=== PATIENT | male | born 1990 ===

== ENCOUNTER 2017-12-23 07:17 | Emergency (ER) | payer OTHER ==
--- NOTE | 2017-12-23 07:22 | UC ---
Abdominal Pain Male HPI - HPI Summary HPI Summary: Patient is 27 year old gentleman who presents today with urethral discharge for over 2 weeks. He was diagnosed with urethritis and had been to [facility] urgent care twice where initially he was tested for chlamydia and gonorrhea which came back negative but he was treated with ceftriaxone and azithromycin. Since his symptoms did not get better he was seen again there on 12/18/17 and was tested for Trichomonas and started on Flagyl and Avelox, he has 2 more pills left at this time. He reports having oral sex with a partner who is completely asymptomatic and he has discussed this with her and she is still reachable. He denies any dysuria or frequency but feels that his discharge has increased now, initially it was clear but now it is greenish yellow and dark . Denies any testicular pain or swelling. He has no frequency or urgency or dysuria. Denies any fever, chills, cough chest pain or shortness of breath . No diaphoresis. Denies any abdominal pain , nausea or vomiting , diarrhea or constipation. - History of Current Complaint Stated Complaint: ABDOMINAL COMPLAINT Time Seen by Provider: 12/23/17 07:20 Hx Obtained From: Patient - Allergies/Home Medications Allergies/Adverse Reactions: Allergies Allergy/AdvReac Type Severity Reaction Status Date / Time No Known Allergies Allergy Verified 12/23/17 07:35 Home Medications: Home Medications Moxifloxacin HCl 400 mg PO DAILY WITH MEAL 12/23/17 [History Confirmed 12/23/17] PMH/Surg Hx/FS Hx/Imm Hx - Additional Past Medical History Additional PMH: No significant past medical history Previously Healthy: Yes Other Endocrine History: negative Other Cardiovascular History: negative Other Respiratory History: negative Other GI/ History: negative Other Neurological History: negative Other Psychological History: negative Other Cancer History: negative Review of Systems All Other Systems Reviewed And Are Negative: Yes Constitutional: Positive: Negative Skin: Positive: Negative Eyes: Positive: Negative ENT: Positive: Negative Respiratory: Positive: Negative Cardiovascular: Positive: Negative Gastrointestinal: Positive: Negative Genitourinary: Positive: Vaginal/Penile Discharge - Initially clear and it's now greenish yellow Motor: Positive: Negative Neurovascular: Positive: Negative Musculoskeletal: Positive: Negative Neurological: Positive: Negative Psychological: Positive: Negative Is Patient Immunocompromised?: No Physical Exam - Summary Physical Exam Summary: Physical Exam: Const: Appears well. No signs of apparent distress present. Alert and oriented x 3. Musculo: Walks with a normal gait. Head/Face: Atraumatic, normocephalic on inspection. Eyes: EOMI and PERRLA in both eyes. Conjunctivae clear. No discharge noted ENT: Hearing normal, TM normal appearing bilaterally . Respiratory: Respirations are unlabored. Lungs clear to auscultation bilaterally, no wheezing , rhonchi or rales noted . CVS: Regular rate and Rhythm, S1S2 normal , no murmurs identified. Extremities: Peripheral circulation is grossly normal. Pulses 2+ Abdomen : Soft non tender , nondistended , Bowel sounds present . No guarding , rebound tenderness or rigidity noted. Skin: No lesions or rash located on the upper extremities or on the lower extremities. Neuro: Cranial nerves II to XII intact, motor and sensory intact. DTR Intact bilaterally. Mood is normal. Affect is normal. Genitourinary exam: No hernia, no scrotal swelling or redness or tenderness. No active discharge noted today There is minimal clear fluid expressed upon excessive is squeezing of the penis by the patient Abd Pain Male Course/Dx - Course Course Of Treatment: During the visit today, we obtained a culture swab of the urethral discharge for Gram stain and culture, GC and chlamydia and Trichomonas . We discussed the findings and further plan to obtain the testing first and treat appropriately based on the findings of the test results . Since there is no active discharge noted today and he still has 1-2 days of antibiotics left, likely his symptoms are resolving. Patient expressed understanding . - Differential Dx/Clinical Impression Provider Diagnoses: Urethritis Discharge - Sign-Out/Discharge Documenting (check all that apply): Patient Departure All imaging exams completed and their final reports reviewed: No Studies - Discharge Plan Condition: Stable Disposition: HOME Patient Education Materials: Sexually Transmitted Diseases (ED), Nonspecific Urethritis in Men (ED) Referrals: No Primary Care Phys,NOPCP [Primary Care Provider] - Additional Instructions: We have taken d samples for further lab testing Somebody will follow him with you following the results being available and plan further management appropriately Follow up with your primary care doctor in 2 to 3 days Return to Urgent care / ER if symptoms get worse. - Billing Disposition and Condition Condition: STABLE Disposition: Home
== END 2017-12-23 08:28 | disposition home or self-care (01) ==
LOC: UCEAST 07:17
DX: N34.2 Other urethritis (principal)
CPT/HCPCS: 87070; 87491; 87591; 87661; 99201; G0463